=== PATIENT | male | born 1930 | race Caucasian/White ===

== ENCOUNTER 2016-09-01 15:40 | Inpatient (IN) | payer MEDICARE, BC ==
[2016-09-01] MEDS ORDERED: Diltiazem 25 MG/5 ML SDV IVPUSH ONE (15:50)
--- NOTE | 2016-09-01 16:05 | EDM.PDOC ---
ED HPI GENERAL MEDICAL PROBLEM - General Chief Complaint: Chest Pain Stated Complaint: chest pain Time Seen by Provider: 09/01/16 15:45 Source of Information: Reports: Patient History Limitations: Reports: No Limitations - History of Present Illness INITIAL COMMENTS - FREE TEXT/NARRATIVE: 85 yo wm presents to ER complaining of burning sensation in stomach which began last night. Pt reports today at lunch he tried eating some soup and became nauseated and vomited. Pt denies chest pain, shortness of breath, diaphoresis, dizziness or palpitations. Pt's initial vital signs show atrial fibrillation with rapid ventricular response with a rate as high as 160bpm Onset Date: 08/31/16 Duration: Day(s): (2) Location: Reports: Abdomen Quality: Reports: Burning Severity: Mild Associated Symptoms: Reports: Nausea/Vomiting. Denies: Chest Pain, Cough, cough w sputum, Fever/Chills, Shortness of Breath, Syncope abdominal Pain Score (Numeric/FACES): 5 - Related Data Allergies Allergy/AdvReac Type Severity Reaction Status Date / Time Sulfa (Sulfonamide Allergy Hives Verified 09/01/16 16:04 Antibiotics) Home Meds: Home Meds Ascorbic Acid [Vitamin C] 500 mg PO DAILY 04/11/13 [History] Cholecalciferol (Vitamin D3) [Vitamin D3] 5,000 unit PO DAILY 04/11/13 [History] Krill Oil 1,000 mg PO BEDTIME 04/11/13 [History] Multivitamin [Daily Vitamin] 1 each PO DAILY 04/11/13 [History] Omeprazole 20 mg PO DAILY 04/11/13 [History] Tamsulosin HCl [Flomax] 0.4 mg PO DAILY 04/11/13 [History] Warfarin [Coumadin] 5 mg PO 1800 04/11/13 [History] atorvaSTATin [Lipitor] 40 mg PO BEDTIME 04/11/13 [History] Diltiazem HCl [Diltiazem 24Hr Cd] 180 mg PO DAILY 09/01/16 [History] Past Medical History Neurological History: Reports: CVA Social & Family History - Tobacco Use Second Hand Smoke Exposure: Yes - Alcohol Use Days Per Week of Alcohol Use: 1 Number of Drinks Per Day: 1 Total Drinks Per Week: 1 - Recreational Drug Use Recreational Drug Use: No ED ROS GENERAL - Review of Systems Review Of Systems: See Below Constitutional: Reports: No Symptoms HEENT: Reports: No Symptoms Respiratory: Reports: No Symptoms Cardiovascular: Reports: No Symptoms Endocrine: Reports: No Symptoms GI/Abdominal: Reports: Abdominal Pain, Nausea, Vomiting : Reports: No Symptoms Musculoskeletal: Reports: No Symptoms Skin: Reports: No Symptoms Neurological: Reports: No Symptoms Psychiatric: Reports: No Symptoms Hematologic/Lymphatic: Reports: No Symptoms Immunologic: Reports: No Symptoms ED EXAM, GENERAL - Physical Exam Exam: See Below Exam Limited By: No Limitations General Appearance: Alert, WD/WN, No Apparent Distress Nose: Normal Inspection, Normal Mucosa, No Blood Throat/Mouth: Normal Inspection, Normal Lips, Normal Teeth, Normal Gums, Normal Oropharynx, Normal Voice, No Airway Compromise Head: Atraumatic, Normocephalic Neck: Normal Inspection, Supple, Non-Tender, Full Range of Motion Respiratory/Chest: No Respiratory Distress, Lungs Clear, Normal Breath Sounds, No Accessory Muscle Use, Chest Non-Tender Cardiovascular: Normal Peripheral Pulses, Regular Rate, Rhythm, No Edema, No Gallop, No JVD, No Murmur, No Rub GI/Abdominal: Normal Bowel Sounds, Soft, Non-Tender, No Organomegaly, No Distention, No Abnormal Bruit, No Mass Back Exam: Normal Inspection, Full Range of Motion, NT Extremities: Normal Inspection, Normal Range of Motion, Non-Tender, Normal Capillary Refill, No Pedal Edema Neurological: Alert, Oriented, CN II-XII Intact, Normal Cognition, Normal Gait, Normal Reflexes, No Motor/Sensory Deficits Psychiatric: Normal Affect, Normal Mood Skin Exam: Warm, Dry, Intact, Normal Color, No Rash Lymphatic: No Adenopathy EKG INTERPRETATION EKG Date: 09/01/16 Time: 15:54 Rhythm: a-fib Rate (beats/min): 124 [place]: normal P-wave: absent QRS: normal ST-T: normal QT: normal Comparison: NA - no prior EKG Course - Vital Signs Last Recorded V/S: Last Vital Signs Temp 35.7 C 09/01/16 15:40 Pulse 133 H 09/01/16 16:13 Resp 20 09/01/16 15:40 BP 130/86 09/01/16 16:13 Pulse Ox 97 09/01/16 15:40 - Orders/Labs/Meds Orders: Active Orders 24 hr Category Date Time Status Cardiac Monitoring [RC] . DIRECTED Care 09/01/16 15:51 Active EKG Documentation Completion [RC] ASDIRECTED Care 09/01/16 15:51 Active EKG Documentation Completion [RC] ASDIRECTED Care 09/01/16 16:18 Active Oxygen Therapy Adult [Oxygen Therapy, ED] [RC] Care 09/01/16 15:51 Active ASDIRECTED Chest 1V Frontal [CR] Stat Exams 09/01/16 15:50 Taken Diltiazem 125 mg Med 09/01/16 16:30 Active Sodium Chloride 0.9% [Normal Saline] 100 ml IV TITRATE EKG 12 Lead [EK] Routine Ther 09/01/16 15:50 Ordered EKG 12 Lead [EK] Routine Ther 09/01/16 16:17 Ordered Medication Orders Diltiazem HCl 125 mg/ Sodium (Chloride) 125 mls @ 5 mls/hr IV TITRATE PERLA PRN Reason: 5 MG/HR Labs: Laboratory Tests 09/01/16 09/01/16 09/01/16 Range/Units 16:00 16:00 16:00 WBC 11.5 H (5.0-10.0) 10^3/uL RBC 4.88 (4.50-6.00) 10^6/uL Hgb 15.8 (13.0-17.0) g/dL Hct 45.8 (40.0-52.0) % MCV 93.8 H (82.0-92.0) fL MCH 32.4 H (27.0-31.0) pg MCHC 34.6 (32.0-36.0) g/dL RDW 12.8 (11.5-14.5) % Plt Count 169 (150-300) 10^3/uL MPV 8.0 (7.4-10.4) fL Neut % (Auto) 87.7 H (50.0-70.0) % Lymph % (Auto) 6.5 L (20.0-40.0) % [place] % (Auto) 5.5 (2.0-8.0) % Eos % (Auto) 0.2 L (1.0-3.0) % Baso % (Auto) 0.1 (0.0-1.0) % Neut # (Auto) 10.2 H (2.5-7.0) 10^3/uL Lymph # (Auto) 0.7 L (1.0-4.0) 10^3/uL [place] # (Auto) 0.6 (0.1-0.8) 10^3/uL Eos # (Auto) 0.0 L (0.1-0.3) 10^3/uL Baso # (Auto) 0.0 (0.0-0.1) 10^3/uL PT 24.5 H (8.9-11.4) SEC INR 2.3 H (0.9-1.1) APTT 34.2 H (20.8-31.2) SEC Sodium 137 (136-145) mmol/L Potassium 4.0 (3.3-5.3) mmol/L Chloride 101 (98-115) mmol/L Carbon Dioxide 24.6 (21.0-32.0) mmol/L BUN 15 (6-25) mg/dL Creatinine 0.87 (0.51-1.17) mg/dL Est Cr Clr Drug Dosing TNP Estimated GFR (MDRD) > 60 mL/min Glucose 130 H (70-110) mg/dL Calcium 8.4 L (8.7-10.3) mg/dL Total Bilirubin 1.4 H (0.2-1.0) mg/dL AST 18 (15-37) U/L ALT 24 (12-78) U/L Alkaline Phosphatase 76 (46-116) IU/L Creatine Kinase 53 (26-276) U/L CK-MB (CK-2) 6.80 H* (0.00-4.30) ng/mL Troponin I 0.04 (0.00-0.070) ng/mL B-Natriuretic Peptide 332 H (0-100) pg/mL Total Protein 7.2 (6.4-8.2) g/dL Albumin 3.67 (3.00-4.80) g/dL Lipase 157 (73-393) U/L Meds: Medications Generic Name Dose Route Start Last Admin Trade Name Freq PRN Reason Stop Dose Admin Diltiazem HCl 125 mg/ Sodium 125 mls @ 5 mls/hr 09/01/16 16:30 Chloride IV TITRATE PERLA 5 MG/HR Discontinued Medications Generic Name Dose Route Start Last Admin Trade Name Freq PRN Reason Stop Dose Admin Diltiazem HCl 20 mg 09/01/16 15:50 09/01/16 16:13 Diltiazem IVPUSH 09/01/16 15:51 20 mg ONETIME ONE Administration Ondansetron HCl 4 mg 09/01/16 16:17 Zofran IVPUSH 09/01/16 16:18 ONETIME ONE - Radiology Interpretation Free Text/Narrative:: CXR- NAD Departure - Departure Time of Disposition: 16:52 Disposition: Admitted As Inpatient 65 Condition: fair Clinical Impression: Atrial fibrillation with RVR Gastritis Qualifiers: Gastritis type: unspecified gastritis Chronicity: chronic Gastritis bleeding: without bleeding Qualified Code(s): K29.50 - Unspecified chronic gastritis without bleeding - My Orders Last 24 Hours: My Active Orders 09/01/16 15:50 Chest 1V Frontal [CR] Stat EKG 12 Lead [EK] Routine 09/01/16 15:51 Cardiac Monitoring [RC] . DIRECTED EKG Documentation Completion [RC] ASDIRECTED Oxygen Therapy Adult [Oxygen Therapy, ED] [RC] ASDIRECTED 09/01/16 16:17 EKG 12 Lead [EK] Routine 09/01/16 16:18 EKG Documentation Completion [RC] ASDIRECTED 09/01/16 16:30 Diltiazem 125 mg Sodium Chloride 0.9% [Normal Saline] 100 ml IV TITRATE - Assessment/Plan Last 24 Hours: My Active Orders 09/01/16 15:50 Chest 1V Frontal [CR] Stat EKG 12 Lead [EK] Routine 09/01/16 15:51 Cardiac Monitoring [RC] . DIRECTED EKG Documentation Completion [RC] ASDIRECTED Oxygen Therapy Adult [Oxygen Therapy, ED] [RC] ASDIRECTED 09/01/16 16:17 EKG 12 Lead [EK] Routine 09/01/16 16:18 EKG Documentation Completion [RC] ASDIRECTED 09/01/16 16:30 Diltiazem 125 mg Sodium Chloride 0.9% [Normal Saline] 100 ml IV TITRATE Assessment:: 1. atrial fibrillation with RVR 2. lower abdominal pain Plan: 1. observation status per Dr Lillie German 2. cardizem gtt 5/hr 3. repeat EKG and trop I 8pm 4. cmp/trop I and lipid panel in am supportive care
[2016-09-01] MEDS ORDERED: Ondansetron 4 MG/2 ML SDV IVPUSH ONE (16:17)
[2016-09-01] MEDS ORDERED: Diltiazem 125 MG in Sodium Chloride 0.9% 100 ML IV SCH ×3 (16:30→18:30)
[2016-09-01 16:39] LABS: CHLORIDE,CL 101 mmol/L (98-115); SODIUM,NA 137 mmol/L (136-145)
[2016-09-01] MEDS ORDERED: Sodium Chloride 0.9% 5 ML Syringe FLUSH PRN (16:55)
[2016-09-01] MEDS ORDERED: Ondansetron 4 MG/2 ML SDV IV PRN (16:55)
[2016-09-01] MEDS: Zolpidem 5 MG Tab PO PRN (23:54)
[2016-09-02 08:21] LABS: CHLORIDE,CL 100 mmol/L (98-115); SODIUM,NA 136 mmol/L (136-145)
[2016-09-02] MEDS ORDERED: Nitroglycerin 0.4 MG Tab.SL SL PRN (10:19)
[2016-09-02] MEDS ORDERED: EPINEPHrine 1:10,000 1 MG/10 ML Syringe IVPUSH PRN (10:19)
[2016-09-02] MEDS ORDERED: Atropine 0.1 MG/ML 10 ML Syringe IVPUSH PRN (10:19)
[2016-09-02] MEDS ORDERED: Lidocaine 2% 100 MG/5 ML Syringe IVPUSH PRN (10:19)
--- NOTE | 2016-09-02 11:48 | PCM.HP ---
[id number]: Patient, Old Records, Provider - History of Present Illness Initial Comments - Free Text/Narative: This 85-year-old gentleman came to the ED last night mainly complaining of stomach pains he had. He stated he had a burning sensation which began the night of admission. After eating some soup he became very nauseous and vomited however in the ED he was noted him to have atrial fibrillation with rapid ventricular response. He did not have any shortness of breath or chest pain. His maximum heart rate in the ED was 160 beats per minute. He was admitted on telemetry and Cardizem drip was started. abdominal Pain Score (Numeric/FACES): 5 - Related Data Allergies/Adverse Reactions: Allergies Allergy/AdvReac Type Severity Reaction Status Date / Time Sulfa (Sulfonamide Allergy Hives Verified 09/01/16 16:04 Antibiotics) Home Medications: Home Meds Ascorbic Acid [Vitamin C] 500 mg PO DAILY 04/11/13 [History] Cholecalciferol (Vitamin D3) [Vitamin D3] 5,000 unit PO DAILY 04/11/13 [History] Krill Oil 1,000 mg PO BEDTIME 04/11/13 [History] Multivitamin [Daily Vitamin] 1 each PO DAILY 04/11/13 [History] Tamsulosin HCl [Flomax] 0.4 mg PO DAILY 04/11/13 [History] Warfarin [Coumadin] 5 mg PO 1800 04/11/13 [History] atorvaSTATin [Lipitor] 40 mg PO BEDTIME 04/11/13 [History] Diltiazem HCl [Diltiazem 24Hr Cd] 180 mg PO DAILY 09/01/16 [History] Omeprazole 20 mg PO BIDAC #60 cap.cr 09/03/16 [Rx] Past Medical History Cardiovascular History: Reports: High Cholesterol, Hypertension Gastrointestinal History: Reports: GERD Genitourinary History: Reports: BPH Neurological History: Reports: CVA - Past Surgical History Cardiovascular Surgical History: Reports: None GI Surgical History: Reports: Hernia Repair/Other Male Surgical History: Reports: None Neurological Surgical History: Reports: None Social & Family History - Family History Family Medical History: Noncontributory - Tobacco Use Smoking Status *Q: Never Smoker Second Hand Smoke Exposure: No - Caffeine Use Caffeine Use: Reports: Coffee Caffeine Use Comment: decaf coffee - Alcohol Use Days Per Week of Alcohol Use: 1 Number of Drinks Per Day: 1 Total Drinks Per Week: 1 - Recreational Drug Use Recreational Drug Use: No H&P Review of Systems - Review of Systems: Review Of Systems: See Below General: Reports: No Symptoms HEENT: Reports: No Symptoms Pulmonary: Reports: No Symptoms Cardiovascular: Reports: Palpitations. Denies: Chest Pain, Lightheadedness Gastrointestinal: Reports: Nausea Genitourinary: Reports: Retention Musculoskeletal: Reports: No Symptoms Skin: Reports: No Symptoms Psychiatric: Reports: No Symptoms Neurological: Reports: No Symptoms Hematologic/Lymphatic: Reports: No Symptoms Exam - Exam Exam: See Below - Vital Signs Vital Signs: Last Vital Signs Temp 97.3 F 09/02/16 10:48 Pulse 109 H 09/02/16 10:48 Resp 16 09/02/16 10:48 BP 152/99 H 09/02/16 10:48 Pulse Ox 96 09/02/16 10:48 Weight: 173 lb - Exam Quality Assessment: No: Supplemental Oxygen General: Alert, Oriented, 4 Neck: Supple, Trachea Midline, 2 Lungs: Clear to Auscultation, Normal Respiratory Effort Cardiovascular: Irregular Rhythm, Tachycardia Abdomen: Normal Bowel Sounds, Soft Back Exam: No: CVA Tenderness (L), CVA Tenderness (R) Peripheral Pulses: 2+: Radial (L), Radial (R) Skin: Warm Neurological: Cranial Nerves Intact Neuro Extensive - Mental Status: Alert, Oriented x3, Normal Mood/Affect, Normal Cognition Neuro Extensive - Motor, Sensory, Reflexes: CN II-XII Intact, Normal Gait, Normal Reflexes - Patient Data Lab Results last 24 hrs: Laboratory Results - last 24 hr 09/01/16 09/02/16 09/02/16 Range/Units 21:40 07:20 07:20 WBC 11.7 H (5.0-10.0) 10^3/uL RBC 5.06 (4.50-6.00) 10^6/uL Hgb 16.3 (13.0-17.0) g/dL Hct 47.9 (40.0-52.0) % MCV 94.8 H (82.0-92.0) fL MCH 32.2 H (27.0-31.0) pg MCHC 34.0 (32.0-36.0) g/dL RDW 13.0 (11.5-14.5) % Plt Count 154 (150-300) 10^3/uL MPV 7.9 (7.4-10.4) fL Neut % (Auto) 87.1 H (50.0-70.0) % Lymph % (Auto) 7.2 L (20.0-40.0) % [place] % (Auto) 5.3 (2.0-8.0) % Eos % (Auto) 0.4 L (1.0-3.0) % Baso % (Auto) 0.0 (0.0-1.0) % Neut # (Auto) 10.3 H (2.5-7.0) 10^3/uL Lymph # (Auto) 0.8 L (1.0-4.0) 10^3/uL [place] # (Auto) 0.6 (0.1-0.8) 10^3/uL Eos # (Auto) 0.0 L (0.1-0.3) 10^3/uL Baso # (Auto) 0.0 (0.0-0.1) 10^3/uL Sodium 136 (136-145) mmol/L Potassium 3.9 (3.3-5.3) mmol/L Chloride 100 (98-115) mmol/L Carbon Dioxide 29.0 (21.0-32.0) mmol/L BUN 11 (6-25) mg/dL Creatinine 0.74 (0.51-1.17) mg/dL Est Cr Clr Drug Dosing 76.32 mL/min Estimated GFR (MDRD) > 60 mL/min Glucose 123 H (70-110) mg/dL Calcium 9.2 (8.7-10.3) mg/dL Total Bilirubin 1.4 H (0.2-1.0) mg/dL AST 18 (15-37) U/L ALT 23 (12-78) U/L Alkaline Phosphatase 72 (46-116) IU/L Troponin I < 0.04 0.05 (0.00-0.070) ng/mL Total Protein 7.1 (6.4-8.2) g/dL Albumin 3.43 (3.00-4.80) g/dL Triglycerides 38 (30-150) mg/dL Cholesterol 137 (100-199) mg/dL LDL Cholesterol, Calc 62 (0-100) mg/dL HDL Cholesterol 67 H (40-60) mg/dL Result Diagrams: 09/03/16 07:05 09/02/16 07:20 *Q Meaningful Use (ADM) - VTE *Q VTE Criteria *Q: - Stroke *Q Stroke Criteria *Q: - AMI *Q AMI Criteria *Q: Problem List Initiated/Reviewed/Updated: Yes Orders Last 24hrs: Active Orders 24 hr Category Date Time Status Atropine [Atropine 0.1 MG/ML] Med 09/02/16 10:19 Active 0 mg IVPUSH ASDIRECTED PRN EPINEPHrine [EPINEPHrine 1:10,000] Med 09/02/16 10:19 Active 1 mg IVPUSH ASDIRECTED PRN Lidocaine 2% [Xylocaine 2%] Med 09/02/16 10:19 Active 0 mg IVPUSH ASDIRECTED PRN Nitroglycerin [Nitrostat] Med 09/02/16 10:19 Active 0.4 mg SL ASDIRECTED PRN Zolpidem [Ambien] Med 09/01/16 23:39 Active 5 mg PO BEDTIME PRN Medication Orders Atropine Sulfate (Atropine 0.1 Mg/Ml) 0 mg IVPUSH ASDIRECTED PRN PRN Reason: Heart Epinephrine HCl (Epinephrine 1:10,000) 1 mg IVPUSH ASDIRECTED PRN PRN Reason: Heart Lidocaine HCl (Xylocaine 2%) 0 mg IVPUSH ASDIRECTED PRN PRN Reason: Heart Nitroglycerin (Nitrostat) 0.4 mg SL ASDIRECTED PRN PRN Reason: Heart Ondansetron HCl (Zofran) 4 mg IV Q6H PRN PRN Reason: Nausea/Vomiting Sodium Chloride (Syrex Flush) 5 ml FLUSH Q8HR PRN PRN Reason: Keep Vein Open Zolpidem Tartrate (Ambien) 5 mg PO BEDTIME PRN PRN Reason: Sleep Last Admin: 09/01/16 23:54 Dose: 5 mg Assessment/Plan Comment:: HISTORY OF PRESENT ILLNESS This 85-year-old gentleman came to the ED last night mainly complaining of stomach pains he had. He stated he had a burning sensation which began the night of admission. After eating some soup he became very nauseous and vomited however in the ED he was noted him to have atrial fibrillation with rapid ventricular response. He did not have any shortness of breath or chest pain. His maximum heart rate in the ED was 160 beats per minute. He was admitted on telemetry and Cardizem drip was started. Troponin ED normal, BNP 332 FULL CODE Impression/plan Atrial fibrillation, RVR, acute on chronic, [id number] high--anticoagulation with Coumadin,, start back on Cardizem 180 mg--rate control strategy, may have to give dig 0.25 mg if no improvement if heart rate about 100 in a few hours. INR 2.3. Telemetry Leukocytosis, mild, no reactive thrombocytosis. BPH, continue on tablets and, will check PVR after bladder scan SECONDARY PROBLEMS Hypertension, primary Hypercholesterolemia, lipid profile very good History of TIAs/CVA History is of Musculoskeletal pain such as back pain radiculitis with lower lumbar pathology Osteoarthritis
[2016-09-02] MEDS: Diltiazem 180 MG Cap.CD PO SCH (13:04)
[2016-09-02] MEDS: Tamsulosin 0.4 MG Cap.ER PO SCH (13:04)
[2016-09-02] MEDS: Omeprazole 20 MG Cap.CR PO SCH (17:02)
[2016-09-02] MEDS ORDERED: Warfarin 5 MG Tab PO SCH (18:00)
[2016-09-02] MEDS: Zolpidem 5 MG Tab PO PRN (21:53)
[2016-09-03] MEDS: Omeprazole 20 MG Cap.CR PO SCH (07:02)
[2016-09-03 07:18] VITALS: BP 122/84
[2016-09-03] MEDS: Diltiazem 180 MG Cap.CD PO SCH (09:19)
[2016-09-03] MEDS: Tamsulosin 0.4 MG Cap.ER PO SCH (09:20)
--- NOTE | 2016-09-04 08:16 | DISCH ---
He was admitted inpatient on 09/01, discharged from inpatient 09/03. FINAL DIAGNOSES: 1. Atrial fibrillation with rapid ventricular response, now controlled, CHADS2- VASc score high, on Coumadin, much improved. 2. Leukocytosis, mild. No reactive thrombocytosis, this is normal. 3. BPH with 120 mL postvoid residual, will need further diagnostic studies. 4. Gastroesophageal reflux disease, improved with omeprazole b.i.d. BRIEF HISTORY: This 85-year-old gentleman came into the ED complaining of some stomach pains and some burning sensation. Anyway, he stated he had some burning sensation which began the night of admission, he was eating some soup, became very nauseous, and vomited; however, it was noted incidentally that he was rapid ventricular response. He does have chronic atrial fibrillation, for which he takes Coumadin. He was placed on telemetry. He does take Cardizem at home. BNP on admission was 332. ED troponin was normal. HOSPITAL COURSE: Quite uneventful. He wanted to go home the day after admission; however, we kept him for 2 days. Continue with his anticoagulation. He was started on diltiazem drip very shortly after admission, and he did well. He was given labs. He did have a slightly elevated white count with percentage neutrophils of 87%. This was trending down on discharge. No antibiotics were given. INR on discharge was 2.1. Sodium, potassium, BUN, and creatinine were all normal. Troponin was normal. He did have a lipid profile here. Cholesterol 137, LDL 62, HDL 67 with a lipase of 157. He never ran a temperature. His vital signs were stable. He was not hemodynamically unstable. There was no microbiology report. He had no diarrhea. He did have some episodes of acid reflux. It did seem to improve. We increased his PPI therapy to b.i.d. This did improve significantly. He does have a history of BPH, so we did a bladder scan. He had 120 postvoid residual on that. PHYSICAL EXAM ON DISCHARGE: VITAL SIGNS: Stable. The patient alert and oriented. LUNGS: Clear. No tenderness, no chest pain. GI: No longer has any GI disturbance. PROSTATE AND RECTAL EXAM: Moderate size, soft, no nodularity noted. Other diagnostics: Postvoid residual 120. The patient does state he gets up about five times a night voiding. He does feel he empties his bladder. He does take fluid into the evening. He has been counseled on this regarding good toilet training. He is on Flomax. We will continue with that. DISPOSITION: 1. The patient will be discharged home. His rate is controlled. He is anticoagulated. He continues with that. Continue on his home medications, diltiazem. 2. Medications: Diltiazem as directed, omeprazole changed from daily to b.i.d. 20 mg. 3. The patient will be discharged. He will follow up in [facility]. RECOMMENDATIONS AT FOLLOWUP: We have scheduled a pre and postvoid residual, ultrasound with a prostate ultrasound, and he will follow Dr. Moreira this coming Thursday. He is to report any more shortness of breath or any abdominal disturbance or lightheadedness or any chest pain. MEDICAL DECISION MAKIN minutes was spent on this discharge planning and process. /[id number]/MODL
== END 2016-09-03 11:00 | disposition home or self-care (01) | DRG 310 ==
LOC: KA.ED 15:40 → KA.MS 16:55
PROVIDERS: ADMIT Physician Assistant Medical; ATTEND Family Medicine
DX: I48.91 Unspecified atrial fibrillation (principal); K29.50 Unspecified chronic gastritis without bleeding; I48.2 Chronic atrial fibrillation; D72.829 Elevated white blood cell count, unspecified; N40.0 Benign prostatic hyperplasia without lower urinary tract symptoms; I10 Essential (primary) hypertension; E78.00 Pure hypercholesterolemia, unspecified; Z86.73 Personal history of transient ischemic attack (TIA), and cerebral infarction without residual deficits; M19.90 Unspecified osteoarthritis, unspecified site; K21.9 Gastro-esophageal reflux disease without esophagitis; Z79.01 Long term (current) use of anticoagulants; Z79.899 Other long term (current) drug therapy; Z88.2 Allergy status to sulfonamides
CPT/HCPCS: 71010; 80053; 82550; 82553; 83690; 83880; 84484; 85025; 85610; 85730; 93005 ×2; 96374; 99285 ×2; J2405; 36415; 51798; 80061; A9270-GY; J3490; J7050

== ENCOUNTER 2018-05-25 09:37 | Day surgery (SDC) | payer MEDICARE, BC ==
[2018-05-25] MEDS ORDERED: Moxifloxacin 0.5% Ophth Soln 3 ML Bottle EYERT SCH (09:45)
[2018-05-25] MEDS ORDERED: Sodium Chloride 0.9% 10 ML Syringe FLUSH PRN (09:45)
[2018-05-25] MEDS ORDERED: Lactated Ringers 1,000 ML IV SCH (09:45)
[2018-05-25] MEDS: Cyclopentolate 1% Opth Soln 2 ML Bottle EYERT SCH ×3 (09:57→10:17)
[2018-05-25] MEDS: Phenylephrine 10% Ophth Soln 5 ML Bot EYERT SCH ×3 (10:02→10:24)
[2018-05-25] MEDS ORDERED: Balanced Salt Solution Ophth Irrig 15 ML Bottle EYERT ONE (11:47)
[2018-05-25] MEDS ORDERED: Balanced Salt Solution Plus Ophth Irrig 500 ML Bottle IOCULAR ONE (11:47)
[2018-05-25] MEDS ORDERED: Water For Irrigation,Sterile 1,500 ML Container IRR ONE (11:47)
[2018-05-25] MEDS ORDERED: Carbachol 0.01% Intraocular 1.5 ML Vial EYERT ONE (11:48)
[2018-05-25] MEDS ORDERED: EPINEPHrine 1 MG/ML SDV ONE (11:48)
[2018-05-25] MEDS ORDERED: Hyaluronate Sodium 1% 0.85 ML Syringe IOCULAR ONE ×3 (11:49)
[2018-05-25] MEDS ORDERED: Lidocaine 1% 10 ML MDV INJECT ONE (11:49)
[2018-05-25] MEDS ORDERED: Dexamethasone/Neomycin/Polymyxin B Ophth Oint 3.5 GM Tube EYERT ONE (11:49)
[2018-05-25] MEDS ORDERED: Lidocaine 2% with EPINEPHrine 1:100,000 20 ML MDV INJECT ONE (11:49)
[2018-05-25] MEDS ORDERED: Tetracaine HCl/PF 0.5% 4 ML Bottle EYEBOTH ONE (11:50)
[2018-05-25 12:18] VITALS: BP 173/87
--- NOTE | 2018-05-26 08:44 | OR ---
DATE OF SURGERY: 05/25/2018 SURGEON: Obed Cuellar MD PREOPERATIVE DIAGNOSIS: Cataract, right eye. POSTOPERATIVE DIAGNOSIS: Cataract, right eye. OPERATION PERFORMED: Phacoemulsification with posterior chamber lens insertion, right eye. HISTORY: The patient presents at this time with an increasing amount of difficulty seeing at distance. The right eye has a vision of 20/50 -2. The right lens has a 3+ nuclear sclerosis and a 2+ cortical change. This eye has a combined cataract and a cataract of aging. DESCRIPTION OF OPERATIVE PROCEDURE: The patient was taken to the operating room where appropriate anesthesia, sedation and monitoring were provided. A retrobulbar block was given on the right side. The eye was massaged and was found to be appropriately soft. The eye and eyelids were then prepped and draped in the usual sterile manner. Lid speculum was placed. A micro sharp blade was used to enter the anterior chamber superotemporally and through this site, Xylocaine and then Healon were irrigated in the eye. It had been noted at the outset of the case that the pupil was only mid dilated to approximately 3.5 mm. A 2.85 mm blade was used to enter the anterior chamber temporally at the limbal site and then Healon was irrigated in the eye, following which a cystotome was used to create the anterior capsulorrhexis. Once this was done, the lens nucleus was hydrodissected using a 27-gauge cannula and balanced salt solution. The phacoemulsification unit was introduced through the temporal site and the Cornelius spatula through the superior temporal site. In so doing, the anterior aspect of the lens nucleus was phacoemulsified, but the pupil became smaller and floppier during this process, and therefore, a Malyugin ring of 6.25 mm size was placed to keep the iris dilated. Once this was done, the remainder of the phacoemulsification was accomplished without difficulty. The cortical fragments of the lens were removed using the irrigation-aspiration unit. The posterior capsule was polished. Healon was irrigated in the eye. The posterior chamber lens was inserted and it was rotated into position inside the capsular bag. The Malyugin ring was removed. The Healon was irrigated out of the eye. Miostat was irrigated in the eye and the pupil rounded nicely. A single interrupted 10-0 nylon suture was placed through the temporal corneal incision site. Balanced salt solution was irrigated in the eye. The wound was tested and it was found to be appropriately tight. Maxitrol ointment was placed in the patient's eye. The eyelids were closed, and an eye patch and a Fountain shield were placed. The patient left the operating room in good condition. /[id number]/MODL
== END 2018-05-25 12:45 | disposition home or self-care (01) ==
LOC: KA.SDS 09:37
PROVIDERS: ATTEND Ophthalmology
DX: H25.811 Combined forms of age-related cataract, right eye (principal); I10 Essential (primary) hypertension; I48.2 Chronic atrial fibrillation; E78.00 Pure hypercholesterolemia, unspecified; N40.1 Benign prostatic hyperplasia with lower urinary tract symptoms; R35.1 Nocturia; Z86.73 Personal history of transient ischemic attack (TIA), and cerebral infarction without residual deficits; Z79.899 Other long term (current) drug therapy; Z88.2 Allergy status to sulfonamides
CPT/HCPCS: 36416; 66984; 85610; A9270; C1780; J0171; J2001; J7120; 00142

== ENCOUNTER 2018-06-22 09:36 | Day surgery (SDC) | payer MEDICARE, BC ==
[2018-06-22] MEDS ORDERED: Sodium Chloride 0.9% 10 ML Syringe FLUSH PRN (09:45)
[2018-06-22] MEDS ORDERED: Lactated Ringers 1,000 ML IV SCH (09:45)
[2018-06-22] MEDS ORDERED: Moxifloxacin 0.5% Ophth Soln 3 ML Bottle EYELF SCH (09:45)
[2018-06-22] MEDS: Phenylephrine 10% Ophth Soln 5 ML Bot EYELF SCH ×3 (09:49→10:13)
[2018-06-22] MEDS: Cyclopentolate 1% Opth Soln 2 ML Bottle EYELF SCH ×3 (09:55→10:18)
[2018-06-22] MEDS ORDERED: Water For Irrigation,Sterile 1,500 ML Container IRR ONE (10:34)
[2018-06-22] MEDS ORDERED: Balanced Salt Solution Ophth Irrig 15 ML Bottle EYELF ONE (10:34)
[2018-06-22] MEDS ORDERED: Balanced Salt Solution Plus Ophth Irrig 500 ML Bottle IOCULAR ONE (10:34)
[2018-06-22] MEDS ORDERED: Dexamethasone/Neomycin/Polymyxin B Ophth Oint 3.5 GM Tube EYELF ONE (10:35)
[2018-06-22] MEDS ORDERED: Carbachol 0.01% Intraocular 1.5 ML Vial EYELF ONE (10:35)
[2018-06-22] MEDS ORDERED: EPINEPHrine 1 MG/ML SDV ONE (10:35)
[2018-06-22] MEDS ORDERED: Lidocaine 1% 10 ML MDV INJECT ONE (10:36)
[2018-06-22] MEDS ORDERED: Hyaluronate Sodium 1% 0.85 ML Syringe IOCULAR ONE ×2 (10:36)
[2018-06-22] MEDS ORDERED: Lidocaine 2% with EPINEPHrine 1:100,000 20 ML MDV INJECT ONE (10:36)
[2018-06-22] MEDS ORDERED: Tetracaine HCl/PF 0.5% 4 ML Bottle EYEBOTH ONE (10:37)
[2018-06-22 11:49] VITALS: BP 142/83
--- NOTE | 2018-06-22 15:31 | OR ---
DATE OF SURGERY: 06/22/2018 SURGEON: Obed Cuellar MD PREOPERATIVE DIAGNOSIS: Cataract, left eye. POSTOPERATIVE DIAGNOSIS: Cataract, left eye. OPERATION PERFORMED: Phacoemulsification with posterior chamber lens insertion, left eye. HISTORY: The patient presents at this time with an increasing amount of difficulty as he attempts to see at distance. 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 This eye has a combined cataract and a cataract of aging. FINDINGS: The patient was taken to the operating room where appropriate anesthesia, sedation and monitoring were provided. A retrobulbar block was given on the left side. The eye was massaged and was found to be appropriately soft. The eye and eyelids were then prepped and draped in the usual sterile manner. A lid speculum was placed. A micro sharp blade was used to enter the anterior chamber inferotemporally and through this site, Xylocaine and then Healon were irrigated into the eye. It was noted preoperatively that the patient had a pupil which dilated to approximately 3.5 mm and not larger than this. A 2.85 mm blade was used to enter the anterior chamber temporally at the limbal site and then Healon was irrigated into the eye through this site. Then, using a cystotome, the anterior capsulorrhexis was created. The lens nucleus was hydrodissected using a 27-gauge cannula and balanced salt solution. The phacoemulsification unit was introduced through the temporal site and the Cornelius spatula through the inferior temporal site. In so doing, the anterior aspect of the lens nucleus was phacoemulsified. During this process, the pupil became even smaller and floppier. Therefore, a Malyugin ring of 6.25 mm size was placed to keep the iris dilated. Once this was done, the remainder of the phacoemulsification was accomplished without difficulty. The cortical fragments of the lens were removed using irrigation aspiration unit. The posterior capsule was polished. The Healon was irrigated into the eye. The posterior chamber lens was inserted and it was rotated into position inside the capsular bag. The Malyugin ring was removed. The Healon was irrigated out of the eye. Miostat was irrigated into the eye and the pupil rounded nicely. Balanced salt solution was irrigated into the eye. A single interrupted 10-0 nylon suture was placed through the temporal corneal incision site and an additional interrupted 10-0 nylon suture was placed to the inferior temporal incision site. The wound was tested and it was found to be appropriately tight. Maxitrol ointment was placed in the patient's eye. The eyelids were closed and an eye patch and a Fountain shield were placed. The patient left the operating room in good condition. /[id number]/[id number]
== END 2018-06-22 12:08 | disposition home or self-care (01) ==
LOC: KA.SDS 09:36
PROVIDERS: ATTEND Ophthalmology
DX: H25.812 Combined forms of age-related cataract, left eye (principal); I10 Essential (primary) hypertension; E78.00 Pure hypercholesterolemia, unspecified; I48.2 Chronic atrial fibrillation; K21.9 Gastro-esophageal reflux disease without esophagitis; Z79.01 Long term (current) use of anticoagulants; Z79.899 Other long term (current) drug therapy; Z86.73 Personal history of transient ischemic attack (TIA), and cerebral infarction without residual deficits
CPT/HCPCS: 00142; 36415; 36416; 85610; A9270-GY; C1780; J0171; J2001; J7120